=== PATIENT | female | born 2000 | race Two or more races ===

== ENCOUNTER → 2020-09-16 | Outpatient (CLI) | payer SELFPAY | LOC: M LABSMTC 10:10 | PROVIDERS: ATTEND Pediatrics | DX: Z20.822 Contact with and (suspected) exposure to COVID-19 (principal) ==

== ENCOUNTER → 2020-09-20 | Outpatient (CLI) | payer SELFPAY | LOC: M LABSMTC 09:57 | PROVIDERS: ATTEND Pediatrics | DX: Z20.822 Contact with and (suspected) exposure to COVID-19 (principal) ==

== ENCOUNTER → 2020-09-27 | Outpatient (CLI) | payer SELFPAY | LOC: M LABSMTC 09:44 | PROVIDERS: ATTEND Pediatrics | DX: Z20.822 Contact with and (suspected) exposure to COVID-19 (principal) ==

== ENCOUNTER → 2020-10-04 | Outpatient (CLI) | payer SELFPAY | LOC: M LABSMTC 10:34 | PROVIDERS: ATTEND Pediatrics | DX: Z20.822 Contact with and (suspected) exposure to COVID-19 (principal) ==

== ENCOUNTER → 2020-10-11 | Outpatient (CLI) | payer SELFPAY | LOC: M LABSMTC 10:06 | PROVIDERS: ATTEND Pediatrics | DX: Z20.822 Contact with and (suspected) exposure to COVID-19 (principal) ==

== ENCOUNTER → 2020-10-18 | Outpatient (CLI) | payer SELFPAY | LOC: M LABSMTC 10:08 | PROVIDERS: ATTEND Pediatrics | DX: Z11.52 Encounter for screening for COVID-19 (principal) ==

== ENCOUNTER → 2020-10-25 | Outpatient (CLI) | payer SELFPAY | LOC: M LABSMTC 10:15 | PROVIDERS: ATTEND Pediatrics | DX: Z11.52 Encounter for screening for COVID-19 (principal) ==

== ENCOUNTER → 2020-11-01 | Outpatient (CLI) | payer SELFPAY | LOC: M LABSMTC 10:18 | PROVIDERS: ATTEND Pediatrics | DX: Z11.52 Encounter for screening for COVID-19 (principal) ==

== ENCOUNTER → 2020-11-08 | Outpatient (CLI) | payer SELFPAY | LOC: M LABSMTC 14:01 | PROVIDERS: ATTEND Pediatrics | DX: Z20.828 Contact with and (suspected) exposure to other viral communicable diseases (principal) ==

== ENCOUNTER → 2020-11-15 | Outpatient (CLI) | payer SELFPAY | LOC: M LABSMTC 10:10 | PROVIDERS: ATTEND Pediatrics | DX: Z20.828 Contact with and (suspected) exposure to other viral communicable diseases (principal) ==

== ENCOUNTER → 2020-11-22 | Outpatient (CLI) | payer SELFPAY | LOC: M LABSMTC 10:44 | PROVIDERS: ATTEND Pediatrics | DX: Z20.822 Contact with and (suspected) exposure to COVID-19 (principal) ==

== ENCOUNTER → 2020-11-30 | Outpatient (CLI) | payer SELFPAY | LOC: M LABSMTC 11:21 | PROVIDERS: ATTEND Pediatrics | DX: Z20.828 Contact with and (suspected) exposure to other viral communicable diseases (principal); Z11.59 Encounter for screening for other viral diseases ==

== ENCOUNTER → 2020-12-06 | Outpatient (CLI) | payer SELFPAY | LOC: M LABSMTC 10:09 | PROVIDERS: ATTEND Pediatrics | DX: Z20.828 Contact with and (suspected) exposure to other viral communicable diseases (principal) ==

== ENCOUNTER → 2020-12-20 | Outpatient (CLI) | payer SELFPAY | LOC: M LABSMTC 10:54 | PROVIDERS: ATTEND Pediatrics | DX: Z11.52 Encounter for screening for COVID-19 (principal) ==